=== PATIENT | male | born 1945 | race Caucasian/White ===

== ENCOUNTER 2018-06-07 00:11 | Outpatient (CLI) | payer MEDICARE, SELFPAY ==
--- NOTE | 2018-06-07 13:00 | ETT_ITS ---
*[facility]* *[facility]* [address] [place] [address] Stress Electrocardiography Stefan protocol Date of study: 06/07/2018 *PATIENT PRESENTATION* Height: 172.7cm (68in) Blood Pressure: Weight: 93.2kg (205lb) BSA: 2.14m^2 Referring physician: Mateusz Ordonez Ordering physician: Mateusz Ordonez Impressions: - Normal stress test to submaximal heart rate (84% THR achieved). - Significant diminshed functional capacity. Summary: 1. Stress: The target heart rate was not achieved. Recommendations: Suggest getting pharmacological nuclear stress test. Indication: R07.89. 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 PT STATES IT IS WORSE BREATHING COLD AIR IN THE COLD WEATHER. PT JUST STARTED LISINOPRIL A FEW WEEKS AGO FOR HIS BLOOD PRESSURE, OTHERWISE HE HAS NOT BEEN ON ANY SCHEDULED MEDICATIONS. Risk factors: FORMER SMOKER QUIT 40 YEARS AGO. SMOKER FOR 15 YEARS. FATHER HAD TRIPLE BYPASS SURGURY AT AGE 89 YEARS. Family history of coronary artery disease. Hypertension. Cholesterol: 239mg/dl. HDL: 48mg/dl. LDL: 157mg/dl. Triglycerides: 176mg/dl. ALLERGIES: PENICILLINS. MEDICATIONS: LISINOPRIL 5 MG DAILY. ALLERGIES: NONE. MEDICATIONS: DONE. Protocol: Stefan protocol. Stress protocol: + +---+ + !Stage !HR !BP (mmHg) ! + +---+ + !Baseline supine !72 !176/90 (119)! + +---+ + !Baseline standing !71 !170/86 (114)! + +---+ + !Stage I; 1.7mph, 10degrees; 3 min!103! ! + +---+ + !Peak stress !125! ! + +---+ + !Recovery; 1 min !76 !170/88 (115)! + +---+ + !Recovery; 4 min !65 !160/80 (107)! + +---+ + !Recovery; 7 min !65 !162/84 (110)! + +---+ + * Stress results: Maximal heart rate during stress was 125bpm (86% of maximal predicted heart rate). The maximal predicted heart rate was 146bpm. The target heart rate was not achieved. The rate-pressure product for the peak heart rate and blood pressure was 97636ji Hg/min. Stress ECG: STRESS TEST ENDED IN 1 MINUTE & 44 SECONDS DUE TO LEGS CRAMPING, FATIGUE AND INABILITY TO KEEP WALKING SAFELY ON TREADMILL NORMAL HEART RATE AND BLOOD PRESSURE RESPONSE TO EXERCISE MAX HR = 125 % OF TARGET = 84 NO ECTOPY APPROXIMATE METS ACHIEVED = 3.97 NO ANGINA NO SIGNIFICANT ST SEGMENT CHANGES MARKEDLY DIMINISHED FUNCTIONAL CAPACITY FOR EXERCISE. Study data: Juan Maher MD supervised and was readily available during the procedure. This study was interpreted by [facility]. Study status: Routine. Consent: The risks, benefits, and alternatives to the procedure were explained to the patient and informed consent was obtained. Procedure: Initial setup. A baseline ECG was recorded. Surface ECG leads and manual cuff blood pressure measurements were monitored. Heart sounds: Normal. Lung sounds: Normal. Treadmill exercise testing was performed using the Stefan protocol. Study completion: The patient tolerated the procedure well and was discharged from the lab. Discharge: The patient left the laboratory in stable condition. Birthdate: Patient birthdate: 1945. Sex: Gender: male. Study date: Study date: 06/07/2018. Study time: 00:01 AM. Signature Documentation: The Stress ECG portion of this study was interpreted by Juan Maher MD. Electronically signed by Juan Maher 06/07/2018 14:24
== END 2018-06-07 00:31 ==
PROVIDERS: PCP Specialist/Technologist Athletic Trainer; Visit Provider Specialist/Technologist Athletic Trainer
DX: R07.89 Other chest pain (principal); R06.02 Shortness of breath; I10 Essential (primary) hypertension; Z87.891 Personal history of nicotine dependence; Z82.49 Family history of ischemic heart disease and other diseases of the circulatory system
CPT/HCPCS: 93016; 93018; 93017

== ENCOUNTER 2018-11-30 16:22 | Outpatient (REF) | payer MEDICARE, SELFPAY ==
[2018-11-30 19:46] LABS: BUN 21 mg/dL (7-18); Calcium 9.1 mg/dL (8.5-10.1); Chloride 106 mmol/L (98-107); Estimated GFR 59.02 (mL/min/1.73m2); Glucose 105 mg/dL (70-100); Potassium 4.5 mmol/L (3.5-5.1); Sodium 141 mmol/L (136-145)
== END 2018-11-30 16:42 ==
LOC: NCHCN 16:22
PROVIDERS: PCP Specialist/Technologist Athletic Trainer; Visit Provider Physician Assistant Medical
DX: I10 Essential (primary) hypertension (principal)
CPT/HCPCS: 80048

== ENCOUNTER 2019-09-05 11:52 | Outpatient (REF) | payer MEDICARE, SELFPAY ==
[2019-09-05 19:15] LABS: Hemoglobin A1C 5.9 % (3.8-5.6)
[2019-09-05 19:40] LABS: Anion Gap 10.4 mmol/L (3-11); BUN 22 mg/dL (7-18); CO2 25.6 mmol/L (21.0-32.0); CREATININE 0.88 mg/dL (0.70-1.30); Calcium 9.6 mg/dL (8.5-10.1); Calculated LDL 181 mg/dL (<100); Chloride 102 mmol/L (98-107); Cholesterol 251 mg/dL (<200); Glucose 110 mg/dL (74-106); HDL Cholesterol 42 mg/dL (40-60); Potassium 4.5 mmol/L (3.5-5.1); Sodium 138 mmol/L (136-145); Triglyceride 141 mg/dL (<150); Vitamin B12 194 pg/mL (193-986)
[2019-09-05 19:52] LABS: Creatine Kinase 134 U/L (39-308)
== END 2019-09-05 12:12 ==
LOC: NCHCN 11:52
PROVIDERS: PCP Specialist/Technologist Athletic Trainer; Visit Provider Nurse Practitioner Family
DX: I10 Essential (primary) hypertension (principal); E78.5 Hyperlipidemia, unspecified; R73.09 Other abnormal glucose
CPT/HCPCS: 80048; 80061; 82550; 82607; 83036

== ENCOUNTER 2020-05-04 19:04 | Outpatient (REF) | payer MEDICARE, SELFPAY ==
[2020-05-04 15:43] LABS: Calculated LDL 73 mg/dL (<100); Cholesterol 159 mg/dL (<200); HDL Cholesterol 48 mg/dL (40-60); Triglyceride 192 mg/dL (<150)
[2020-05-04 15:44] LABS: Hemoglobin A1C 6.3 % (<5.7)
== END 2020-05-04 19:05 | disposition home or self-care (01) ==
LOC: NCHCN 19:04
PROVIDERS: PCP Specialist/Technologist Athletic Trainer; Visit Provider Nurse Practitioner Family
DX: R73.03 Prediabetes (principal); E78.5 Hyperlipidemia, unspecified
CPT/HCPCS: 80061; 83036

== ENCOUNTER 2020-07-09 14:17 | Outpatient (REF) | payer MEDICARE, SELFPAY ==
[2020-07-11 14:50] LABS: COVID-19 RT-PCR UVMMC Result Negative (Negative)
== END 2020-07-09 14:18 | disposition home or self-care (01) ==
LOC: NCHCN 14:17
PROVIDERS: PCP Specialist/Technologist Athletic Trainer; Visit Provider Nurse Practitioner Family
DX: Z20.822 Contact with and (suspected) exposure to COVID-19 (principal); R05 Cough
CPT/HCPCS: U0003

== ENCOUNTER → 2020-08-14 14:07 | Outpatient (BNVA) | payer MEDICARE, SELFPAY | PROVIDERS: PCP Specialist/Technologist Athletic Trainer; Referring Provider Specialist/Technologist Athletic Trainer; Visit Provider Physical Therapy Assistant | DX: K21.9 Gastro-esophageal reflux disease without esophagitis (principal); R13.10 Dysphagia, unspecified; I10 Essential (primary) hypertension | CPT/HCPCS: 99203 ==

== ENCOUNTER 2020-08-17 02:24 | Outpatient (CLI) | payer MEDICARE, SELFPAY ==
[2020-08-17 11:56] LABS: Source Nasal/Nares
[2020-08-17 17:56] LABS: COVID-19 PCR Negative (Negative)
== END 2020-08-17 02:25 | disposition home or self-care (01) ==
LOC: LBO 02:24
PROVIDERS: Physical Therapy Assistant; PCP Specialist/Technologist Athletic Trainer; Visit Provider Surgery
DX: Z20.822 Contact with and (suspected) exposure to COVID-19 (principal); Z01.818 Encounter for other preprocedural examination
CPT/HCPCS: 87635

== ENCOUNTER 2020-08-19 07:54 | Day surgery (SDC) | payer MEDICARE, SELFPAY ==
[2020-08-19 08:00] VITALS: BP 171/89; PULSE 61; RESP 16; TEMP 36.4; O2SAT 97
--- NOTE | 2020-08-19 08:11 | W.ANESPRE ---
General Info Date of Service Date Performed: 08/19/20 Height: 5 ft 7 in Weight: 97.296 kg Body Mass Index (BMI): 33.5 Surgical Procedure: Operation Date: 08/19/20 09:05 Proposed Procedures Side Surgeon p Gastroscopy Livan Ellsworth DO Meds Allergies and Home Medications Allergies Allergy/AdvReac Type Severity Reaction Status Date / Time penicillin V Allergy Intermediate unknown Verified 08/19/20 08:05 Home Medication Medication Instructions Recorded amlodipine 2.5 mg tablet 2.5 mg PO DAILY 07/21/20 cyanocobalamin (vitamin B-12) 1,000 mcg PO DAILY 07/21/20 1,000 mcg capsule hydrochlorothiazide 12.5 mg tablet 12.5 mg PO QAM 07/21/20 lisinopril 10 mg tablet 10 mg PO BID 07/21/20 naproxen sodium 220 mg capsule 220 mg PO BID PRN 07/21/20 omeprazole magnesium 20 mg 20 mg PO DAILY 07/21/20 tablet,delayed release rosuvastatin 10 mg tablet 10 mg PO DAILY 07/21/20 triamcinolone acetonide 0.1 % 1 applic TOPICAL BID 07/21/20 topical cream Current Visit Medications: Current Medications Generic Name Dose Route Start Last Admin Trade Name Freq PRN Reason Stop Dose Admin Ringer's Solution 1,000 mls @ 80 mls/hr 08/19/20 06:00 IV 09/17/20 23:59 INFUSION MARY IV Miscellaneous Supplies 1 each 08/19/20 06:00 Iv Access IV 09/17/20 23:59 DIRECTED MARY Sodium Chloride 0 ml 08/19/20 06:00 Normal Saline Flush 10 Ml Syr IV 09/17/20 23:59 PRN PRN Sodium Chloride 0 ml 08/19/20 06:00 Normal Saline 10 Ml Vial IJ 09/17/20 23:59 DIRECTED PRN Sterile Water 0 ml 08/19/20 06:00 Water,Injection,Sterile 10 Ml Vial IJ 09/17/20 23:59 DIRECTED PRN PFSH Active Problems Active Problems: Problem Status Onset Code Dysphagia R13.10 Hyperlipidemia E78.5 Right inguinal hernia K40.90 Hypertension I10 Vitamin D deficiency E55.9 Exertional chest pain R07.9 GERD (gastroesophageal reflux disease) K21.9 Paresthesia of both hands R20.2 Prediabetes R73.03 Post-nasal drip R09.82 Disorder of right external ear H61.91 Dermatitis L30.9 Cough R05 Swallowing problem R13.10 Medical History Medical History (Updated 08/19/20 @ 08:19 by Nell Schulz) Dysphagia GERD (gastroesophageal reflux disease) Hypertension Tibial fracture Surgical History Surgical History (Updated 08/19/20 @ 08:18 by Nell Schulz) S/P ORIF (open reduction internal fixation) fracture S/P rotator cuff repair Tobacco Smoking/Tobacco Use Status: Former Tobacco Use Alcohol Alcohol Intake: current Alcohol intake frequency: holidays/special occasions only Substance Use Substance use type: does not use Vital Signs and Lab Results Lab Results Blood Type / Crossmatch: No Data to Display Complete Blood Count: No Data to Display Complete Metabolic Panel: No Data to Display Liver Function Panel: No Data to Display Coagulation Panel: No Data to Display Cardiac Panel: No Data to Display Arterial Blood Gas: No Data to Display Venous Blood Gas: No Data to Display Pancreas Panel: No Data to Display Thyroid Panel: No Data to Display Infectious Disease: Coronavirus (COVID-19)(PCR) Negative (Negative) 08/17/20 08:40 08/17/20 Coronavirus 2019 Source Nasal/nares 08/17/20 08:40 08/17/20 Blood Cultures: No Data to Display Toxicology Panel: No Data to Display Imaging and Studies Imaging and Studies Stress Test Summary: Stress ECG: STRESS TEST ENDED IN 1 MINUTE & 44 SECONDS DUE TO LEGS CRAMPING, FATIGUE AND INABILITY TO KEEP WALKING SAFELY ON TREADMILL NORMAL HEART RATE AND BLOOD PRESSURE RESPONSE TO EXERCISE Anesthesia Assessment and Plan Anesthesia History Personal History: No History of Anesthesia Complications Family History: No Family History of Anesthesia Complications Exercise Tolerance Exercise Tolerance: Metabolic Equivalents>4 Pertinent Negatives Pertinent Negatives: No Symptoms of GERD, No Major Cardiovascular Symptoms or Complaints, No Major Pulmonary Symptoms or Complaints and No History of CVA/TIA Cardiac & Pulmonary Exam Cardiac Exam: Normal S1/S2 Heart Sounds Pulmonary Exam: Clear Bilateral Breath Sounds Airway Exam Known Difficult Airway: No Mallampati Class: 2 Mouth Opening: Normal (> 3cm) Thyromental Distance: Greater than 3 cm Neck Range of Motion: Full ROM Neck Circumference: Normal Teeth Condition: Normal Dentition and Removable Dentures/Plates Upper ASA Classification ASA Score: ASA 2 Emergency Case?: No NPO Status NPO Status: NPO Clears >2 hours, Solids >8 hours Anesthesia Plan Resuscitation Status: Full Code Anesthesia Technique: General Anesthesia Airway Planned: Natural Airway Monitors Used: Standard Monitors
[2020-08-19 08:21] VITALS: BMI 33.5
[2020-08-19] MEDS: Lactated Ringers 1,000 ML 80 ML IV (08:22)
--- NOTE | 2020-08-19 09:00 | STOM_PTH ---
PATIENT: Osmin Ball LOC: [place] U#:[id number] AGE/SX: 74/M ROOM: RE08/19/[address]: Livan Ellsworth : 1945 BED: DIS: 08/19/2020 SPEC #: [id number] RECD: 08/19/20 12:58 STATUS: ELEN RE #: [id number] JAKE: 08/19/20 09:[address]: Livan Ellsworth DEPT: Surgical Specimen RECD BY: Ghada Hodges ENTERED: 08/19/20 12:59 SP TYPE: STOMACH OTHR DR: Hanna Horn Tissues: 1 - STOMACH BIOPSY 2 - ESOPHAGUS BIOPSY Procedures: GROSS AND MICRO LEVEL 4 Comments: [id number]
--- NOTE | 2020-08-19 09:10 | W.PM.ENDDOP ---
Date of service: 08/19/20 Time of Service: 09:10 Endoscopy Report DATE OF PROCEDURE: 08/19/20 PRE-OP DIAGNOSIS: Dysphagia, GERD POST-OP DIAGNOSIS: other (Mild antral gastritis, Hiatal hernia, slightly irregular GE junction) PROCEDURE: EGD with cold forceps biopsies of antrum and GE junction SURGEON: Livan Ellsworth ANESTHESIA TYPE: MAC ESTIMATED BLOOD LOSS: 2 PATHOLOGY: other (Antrum and GE junction) COMPLICATIONS: None DISPOSITION: same day INDICATIONS: 2-3 year history of progressive dysphagia and GERD. Risks and benefits explained and consent obtained. FINDINGS: Mild antral gastritis 3 cm hiatal hernia Slightly irregular GE junction PROCEDURE DESCRIPTION: After consent was obtained, patient was put into the left lateral decubitus position. Sedation was performed by Anesthesia. The scope was then placed into the mouth and easily advanced to the third portion of the duodenum. There was no duodeal pathology. Mild antral gastritis was seen, and a cold forceps biopsy was taken of the antrum. A retroflexion view showed a hiatal hernia. No other pathology identified in the stomach. Hiatal hernia measured 3 cm in length. The GE junction was slightly irregular, and 4 quadrant biopsies were taken of the GE junction. There was minimal bleeding. The scope was then slowly withdrawn. No pathology was seen in the esophagus. Patient tolerated the procedure well.
[2020-08-19 09:18] VITALS: BP 112/73; PULSE 69; RESP 20; TEMP 36.3; O2SAT 96
--- NOTE | 2020-08-19 09:18 | W.ANESPOSTOP ---
Postoperative Evaluation Date, Time and Location Date Performed: 08/19/20 Time Performed: 09:18 Patient Location: Day Surgery Unit Vital Signs Most Recent Imported Vital Signs: Most Recent Vital Signs Temp Pulse Resp BP Pulse Ox 36.4 C L 61 16 171/89 H 97 08/19/20 08:00 08/19/20 08:00 08/19/20 08:00 08/19/20 08:00 08/19/20 08:00 Most Recent Manually Entered Vital Signs: Adult Blood Pressure: 112/73 Heart Rate: 66 Respirations: 20 Oxygen Saturation (%): 96 Temperature (C): 36.3 C Pain Score (0-10 Scale): 0 Assessment Mental Status: Awake (Alert & Oriented to Patient Baseline) Airway and Respiratory Function: Patent airway with normal (patient baseline) respiratory exam Cardiovascular Function: Hemodynamically Stable Hydration Status: Adequately Hydrated Nausea & Vomiting: No Nausea or Vomiting Pain: Pt. Denies Any Pain Peripheral Nerve Block: Patient did not receive a nerve block
--- NOTE | 2020-08-19 09:19 | W.PM.DSUDISC ---
Discharge Plan Disposition Patient Disposition: HOME Condition: Good Discharge Details Reason For Visit: DYSPHAGIA Attending Provider: Livan Ellsworth Primary Care Provider: Hanna Horn Home Meds and New Rx's Prescriptions: No Action lisinopril 10 mg tablet 10 mg PO BID RF: 0 triamcinolone acetonide 0.1 % cream 1 applic topical BID RF: 0 cyanocobalamin (vitamin B-12) 1,000 mcg capsule 1,000 mcg PO DAILY RF: 0 naproxen sodium 220 mg capsule 220 mg PO BID PRNRF: 0 hydrochlorothiazide 12.5 mg tablet 12.5 mg PO QAM RF: 0 amlodipine 2.5 mg tablet 2.5 mg PO DAILY RF: 0 rosuvastatin 10 mg tablet 10 mg PO DAILY RF: 0 omeprazole magnesium [Prilosec OTC] 20 mg tablet,delayed release (DR/EC) 20 mg PO DAILY RF: 0 Discharge Instructions Additional Instructions: No restrictions Activity:: Activity as Tolerated Diet:: As Tolerated Discharge Data Discharge Date/Time-TO BE ENTERED AT DEPARTURE: 08/19/20 09:21 DS: Diagnosis Discharge Diagnosis (1) GERD (gastroesophageal reflux disease): Status: Chronic Asessment and Plan: Continue medications and follow up with PCP in 1-2 weeks (2) Hiatal hernia: Status: Chronic Asessment and Plan: see above
[2020-08-19 09:20] VITALS: BP 112/73; PULSE 66; RESP 20; TEMPC 36.3; O2SAT 96
[2020-08-19 09:50] VITALS: BP 158/67; PULSE 57; RESP 16; TEMP 36.4; O2SAT 97
== END 2020-08-19 10:30 | disposition home or self-care (01) ==
PROVIDERS: PCP Nurse Practitioner Family; Visit Provider Surgery
PROC: 0DJ68ZZ Inspection of Stomach, Via Natural or Artificial Opening Endoscopic (ICD-10-PCS; CPT 43235; principal; 2020-08-19 09:00)
DX: K21.9 Gastro-esophageal reflux disease without esophagitis (principal); K29.70 Gastritis, unspecified, without bleeding; K44.9 Diaphragmatic hernia without obstruction or gangrene; I10 Essential (primary) hypertension; R73.03 Prediabetes
CPT/HCPCS: 43239; 88305; J2001

== ENCOUNTER → 2020-09-29 08:57 | Outpatient (CLI) | payer MEDICARE, SELFPAY ==
--- NOTE | 2020-09-29 | DI.RAD_ITS ---
Exam(s) XR CERVICAL SPINE COMP 4-5V EXAM: XR CERVICAL SPINE COMP 4-5V CLINICAL HISTORY: PARESTHESIAS, HANDS, R20.2. TECHNIQUE: 2D digital imaging was performed. COMPARISON: No exams were available for comparison FINDINGS: The odontoid is intact. The lateral masses are well aligned. No acute fracture or subluxation. 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 Bilateral multilevel facet arthropathy is presen t. Disc space narrowing and endplate osteophytes are seen at the C5-6, C6-7 and C7-T1 levels. There is neural foraminal narrowing on the left at C4-5, and bilaterally at C5-6 and C6-C7. The preverteb ral soft tissues are unremarkable. IMPRESSION: Moderate cervical spondylosis. DATA REPOSITORY: RADIATION DOSE DELIVERED:
--- NOTE | 2020-09-29 | DI.RAD_ITS ---
Exam(s) XR SHOULDER LT COMPLETE 2+V EXAM: XR SHOULDER LT COMPLETE 2+V CLINICAL HISTORY: LT SHOULDER PAIN, M25.512. TECHNIQUE: 2D digital imaging was performed. COMPARISON: No exams were available for comparison FINDINGS: BONES: No acute fracture is present. No bony destructive lesion is seen. JOINTS: No dislocation present. Moderate degenerative changes are seen at the acromioclavicular join t. The glenohumeral joint is well maintained. SOFT TISSUE: There calcifications in the soft tissue adjacent to the greater tuberosity consistent wi th calcific tendinitis. IMPRESSION: Degenerative changes of the left shoulder. DATA REPOSITORY: RADIATION DOSE DELIVERED:
== END ==
PROVIDERS: PCP Nurse Practitioner Family; Visit Provider Nurse Practitioner Family
DX: M19.012 Primary osteoarthritis, left shoulder (principal); M47.812 Spondylosis without myelopathy or radiculopathy, cervical region; R20.2 Paresthesia of skin
CPT/HCPCS: 72050; 73030

== ENCOUNTER 2020-12-17 12:01 | Outpatient (REF) | payer MEDICARE, SELFPAY ==
[2020-12-17 15:16] LABS: Anion Gap 8.6 mmol/L (3-11); BUN 32 mg/dL (7-18); CO2 26.4 mmol/L (21.0-32.0); CREATININE 1.3 mg/dL (0.70-1.30); Calcium 9.6 mg/dL (8.5-10.1); Chloride 104 mmol/L (98-107); Estimated GFR 53.53 (mL/min/1.73m2); Glucose 111 mg/dL (74-106); Potassium 4.8 mmol/L (3.5-5.1); Sodium 139 mmol/L (136-145)
[2020-12-17 15:30] LABS: Hemoglobin A1C 6.4 % (<5.7)
[2020-12-17 15:35] LABS: Vitamin D 25 Total 32.4 ng/mL (30-100)
== END 2020-12-17 12:02 | disposition home or self-care (01) ==
LOC: NCHCN 12:01
PROVIDERS: PCP Nurse Practitioner Family; Visit Provider Nurse Practitioner Family
DX: R73.03 Prediabetes (principal); E55.9 Vitamin D deficiency, unspecified; Z00.00 Encounter for general adult medical examination without abnormal findings
CPT/HCPCS: 80048; 82306; 83036

== ENCOUNTER 2021-09-27 09:34 | Outpatient (REF) | payer OTHER, SELFPAY ==
[2021-09-27 16:41] LABS: Anion Gap 9.3 mmol/L (3-11); BUN 25 mg/dL (7-18); CO2 24.7 mmol/L (21.0-32.0); CREATININE 1.2 mg/dL (0.70-1.30); Calcium 9.5 mg/dL (8.5-10.1); Chloride 105 mmol/L (98-107); Estimated GFR 58.56 (mL/min/1.73m2); Glucose 118 mg/dL (74-106); Potassium 4.2 mmol/L (3.5-5.1); Sodium 139 mmol/L (136-145)
[2021-09-27 16:43] LABS: Hemoglobin A1C 6.1 % (<5.7)
== END 2021-09-27 09:35 | disposition home or self-care (01) ==
LOC: NCHCN 09:34
PROVIDERS: PCP Nurse Practitioner Family; Visit Provider Nurse Practitioner Family
DX: R73.03 Prediabetes (principal); I10 Essential (primary) hypertension
CPT/HCPCS: 80048; 83036

== ENCOUNTER 2022-10-14 18:56 | Outpatient (REF) | payer OTHER, SELFPAY ==
[2022-10-14 15:40] LABS: ALT 30 U/L (16-63); AST 36 U/L (15-37); Albumin 4.2 g/dL (3.4-5.0); Alkaline Phosphatase 79 U/L (46-116); Anion Gap 10.6 mmol/L (3-11); BUN 24 mg/dL (7-18); Bilirubin, Total 0.3 mg/dL (0.2-1.0); CO2 25.4 mmol/L (21.0-32.0); CREATININE 1.2 mg/dL (0.70-1.30); Calcium 9.9 mg/dL (8.5-10.1); Chloride 103 mmol/L (98-107); Estimated GFR 61.52 (mL/min/1.73m2); Glucose 112 mg/dL (74-106); Potassium 4.2 mmol/L (3.5-5.1); Sodium 139 mmol/L (136-145); Total Protein 7.8 g/dL (6.4-8.2)
[2022-10-14 16:14] LABS: Vitamin D 25 Total 37.4 ng/mL (30-100)
== END 2022-10-14 18:57 | disposition home or self-care (01) ==
LOC: NCHCN 18:56
PROVIDERS: PCP Nurse Practitioner Family; Visit Provider Nurse Practitioner Family
DX: E55.9 Vitamin D deficiency, unspecified (principal); E78.5 Hyperlipidemia, unspecified
CPT/HCPCS: 80053; 82306

== ENCOUNTER 2023-03-27 16:19 | Outpatient (REF) | payer OTHER, SELFPAY ==
[2023-03-27 21:09] LABS: HCT 40.5 % (40.0-50.0); HGB 13.4 g/dL (13.5-17.5); MCH 29.6 pg (27.0-33.0); MCHC 33.1 % (32.0-36.0); MCV 89 fL (80-95); Platelet Count 238 10^3/uL (130-400); RBC 4.53 10^6/uL (4.36-5.78); RDW 13.6 % (11.8-14.1); RDW-SD 44.6 fL; WBC 7.03 10^3/uL (4.4-10.8)
[2023-03-27 21:48] LABS: TSH (W/Ref FT4) 2.13 uIU/mL (0.36-3.74)
[2023-03-27 22:01] LABS: Vitamin D 25 Total 36.8 ng/mL (30-100)
[2023-03-28 13:59] LABS: Ferritin 212 ng/mL (26-388); Vitamin B12 1485 pg/mL (193-986)
== END 2023-03-27 16:20 | disposition home or self-care (01) ==
LOC: NCHCN 16:19
PROVIDERS: PCP Nurse Practitioner Family; Visit Provider Nurse Practitioner Family
DX: R53.83 Other fatigue (principal)
CPT/HCPCS: 82306; 85027; 82607; 82728; 84443

== ENCOUNTER 2023-09-25 13:07 | Outpatient (REF) | payer OTHER, SELFPAY ==
[2023-09-25 18:11] LABS: Hemoglobin A1C 6.2 % (<5.7)
[2023-09-25 19:18] LABS: ALT 33 U/L (16-63); AST 43 U/L (15-37); Albumin 4.1 g/dL (3.4-5.0); Alkaline Phosphatase 73 U/L (46-116); Anion Gap 10.2 mmol/L (3-11); BUN 20 mg/dL (7-18); Bilirubin, Total 0.58 mg/dL (0.2-1.0); CO2 26.8 mmol/L (21.0-32.0); CREATININE 1.2 mg/dL (0.70-1.30); Chloride 103 mmol/L (98-107); Estimated GFR 61.13 (mL/min/1.73m2); Glucose 113 mg/dL (74-106); Potassium 4.2 mmol/L (3.5-5.1); Sodium 140 mmol/L (136-145); Total Protein 7.7 g/dL (6.4-8.2); Vitamin B12 512 pg/mL (193-986)
== END 2023-09-25 13:08 | disposition home or self-care (01) ==
LOC: NCHCN 13:07
PROVIDERS: PCP Nurse Practitioner Family; Visit Provider Nurse Practitioner Family
DX: I10 Essential (primary) hypertension (principal); K21.9 Gastro-esophageal reflux disease without esophagitis; R73.03 Prediabetes; R89.8 Other abnormal findings in specimens from other organs, systems and tissues; R20.2 Paresthesia of skin
CPT/HCPCS: 80053; 82607; 83036; 83735

== ENCOUNTER 2024-10-16 01:27 | Outpatient (CLI) | payer MEDICARE, SELFPAY ==
--- NOTE | 2024-10-16 | DI.US_ITS ---
Exam(s) US AAA SCREENING EXAM: US AAA SCREENING CLINICAL HISTORY: PERS HX NICOTINE DEPENDENCE [id number] FORMER SMOKER COMPARISON: No exams were available for comparison FINDINGS: Abdominal Aorta: Proximal: 2.5 x 2.5 cm Mid: 2.1 x 2.0 cm Distal: 1.9 x 1.9 cm Iliac's: Right: 1.1 x 1.2 cm Left: 1.4 x 1.3 cm Mild atherosclerotic calcification is seen. IMPRESSION: No evidence of abdominal aortic aneurysm. DATA REPOSITORY:
== END 2024-10-16 01:47 ==
LOC: DI 01:27
PROVIDERS: PCP Nurse Practitioner Family; Visit Provider Nurse Practitioner Family
DX: Z13.6 Encounter for screening for cardiovascular disorders (principal); Z87.891 Personal history of nicotine dependence
CPT/HCPCS: 76706

== ENCOUNTER 2024-12-30 13:04 | Outpatient (REF) | payer MEDICARE, SELFPAY ==
[2024-12-30 15:45] LABS: Anion Gap 7.5 mmol/L (3-11); BUN 20 mg/dL (7-18); CO2 30.5 mmol/L (21.0-32.0); Calcium 9.4 mg/dL (8.5-10.1); Chloride 103 mmol/L (98-107); Estimated GFR 60.75 (mL/min/1.73m2); Glucose 119 mg/dL (74-106); Potassium 4.4 mmol/L (3.5-5.1); Sodium 141 mmol/L (136-145)
== END 2024-12-30 13:05 | disposition home or self-care (01) ==
LOC: NCHCN 13:04
PROVIDERS: PCP Nurse Practitioner Family; Visit Provider Nurse Practitioner Family
DX: I10 Essential (primary) hypertension (principal)
CPT/HCPCS: 80048